=== PATIENT | male | born 1995 | race African-American/Black ===

== ENCOUNTER 2021-02-20 10:03 | Emergency (ER) | payer SELFPAY ==
[~2021-02-20] VITALS: Ht 177.8 cm; Wt 130.0 kg
[2021-02-20 10:31] VITALS: BP 160/97
--- NOTE | 2021-02-20 11:27 | PHYS DOC ---
Past Medical History Past Surgical History: No Surgical History General Adult EDM: Chief Complaint: EARACHE/EAR PAIN HPI: HPI: Patient is a 25 year old male who presents with bilateral ear muffled hearing that is worsened since November. Denies fever, pain, nasal congestion, headache, dizziness, chest pain, cough, shortness of breath abdominal pain, nausea, vomiting, diarrhea, throat pain. Denies any pain. Review of Systems: Review of Systems: Constitutional: Denies fever or chills. [] Eyes: Denies change in visual acuity. [] HENT: Denies nasal congestion or sore throat. + Bilateral hearing muffled [] Respiratory: Denies cough or shortness of breath. [] Cardiovascular: Denies chest pain or edema. [] GI: Denies abdominal pain, nausea, vomiting, bloody stools or diarrhea. [] : Denies dysuria. [] Musculoskeletal: Denies back pain or joint pain. [] Integument: Denies rash. [] Neurologic: Denies headache, focal weakness or sensory changes. [] Endocrine: Denies polyuria or polydipsia. [] Lymphatic: Denies swollen glands. [] Psychiatric: Denies depression or anxiety. [] Heart Score: C/O Chest Pain: No Physical Exam: PE: Constitutional: Well developed, well nourished, no acute distress, non-toxic appearance. [] HENT: Normocephalic, atraumatic, bilateral external ears normal, oropharynx moist, no oral exudates, nose normal. Bilateral ear wax impaction. No mastoid tenderness. [] Eyes: PERRLA, EOMI, conjunctiva normal, no discharge. [] Neck: Normal range of motion, no tenderness, supple, no stridor. [] Cardiovascular:Heart rate regular rhythm, no murmur [] Lungs & Thorax: Bilateral breath sounds clear to auscultation [] Abdomen: Bowel sounds normal, soft, no tenderness, no masses, no pulsatile masses. [] Skin: Warm, dry, no erythema, no rash. [] Back: No tenderness, no CVA tenderness. [] Extremities: No tenderness, no cyanosis, no clubbing, ROM intact, no edema. [] Neurologic: Alert and oriented X 3, normal motor function, normal sensory function, no focal deficits noted. [] Psychologic: Affect normal, judgement normal, mood normal. [] Current Patient Data: Vital Signs: Vital Signs Date Time Temp Pulse Resp B/P (MAP) Pulse Ox O2 Delivery O2 Flow Rate FiO2 02/20/21 10:31 98.3 63 12 160/97 (118) 100 Room Air 98.3 EKG: EKG: [] Radiology/Procedures: Radiology/Procedures: [] Course & Med Decision Making: Course & Med Decision Making Pertinent Labs and Imaging studies reviewed. (See chart for details) Alert and oriented x4. Speaks in full clear sentences. Ambulatory steady gait. Lungs are clear to all station all lobes. Skin pink warm and dry. Bilateral tympanic's cannot be seen due to wax impaction. Nurse to flush ears bilaterally. Will reassess after that. Afebrile. Ears are flushed bilaterally. Right ear is clear and left ear still has some wax but eardrums cannot be seen. Tympanic's are intact. There is redness to tympanic in the right ear with tenderness. [] Dragon Disclaimer: Dragon Disclaimer: This electronic medical record was generated, in whole or in part, using a voice recognition dictation system. Departure Departure Impression: Primary Impression: Cerumen impaction Qualified Codes: H61.23 - Impacted cerumen, bilateral Additional Impression: Otitis media Qualified Codes: H66.90 - Otitis media, unspecified, unspecified ear Disposition: HOME / SELF CARE / HOMELESS Condition: STABLE Referrals: NO PCP (PCP) PHOEBE TRAN MD Patient Instructions: Cerumen Impaction-SportsMed, Otitis Media, Adult Additional Instructions: FluidsFollow-up with a primary care doctor or an ears nose throat doctor in the next couple weeks. Take antibiotic as prescribed and with food. Try take antihistamine to to help dry up any fluid that is behind the eardrum.. Drink plenty of fluids. Scripts Amoxicillin (AMOXICILLIN) 500 Mg Capsule 1 CAP PO BID, #20 CAP Prov: HARRISON CHRISTIANSON APRN 02/20/21 HARRISON CHRISTIANSON [employer] Feb 20, 2021 11:27
[2021-02-20] MEDS ORDERED: AMOX500C PO (12:18)
== END 2021-02-20 12:32 | disposition home or self-care (01) ==
LOC: ER 10:03
DX: H61.23 Impacted cerumen, bilateral (principal); H66.93 Otitis media, unspecified, bilateral
CPT/HCPCS: 69209; 99283